=== PATIENT | female | born 1980 | race Caucasian/White ===

== ENCOUNTER 2016-09-13 16:52 | Emergency (ER) | payer BC ==
[2016-09-13 17:06] VITALS: BP 120/68; PULSE 83; TEMP 97.4; BMI 31.0
[2016-09-13 18:19] LABS: PH,URINE 5.5 (4.5-8); URINE APPEARANCE Clear; URINE BILIRUBIN Negative (NEGATIVE); URINE GLUCOSE (UA) Negative (NEGATIVE); URINE KETONE 1+ (NEGATIVE); URINE LEUK ESTERASE Negative (NEGATIVE); URINE NITRITE Negative (NEGATIVE); URINE PROTEIN Negative (NEGATIVE); URINE UROBILINOGEN 0.2 E.U/dl (0.2-1.0)
[2016-09-13 18:20] LABS: BASOPHIL 0.5 % (0-2.0); EOSINOPHIL 1.8 % (0-4.5); MCH 21.1 pg (25.7-33.7); MCHC 30.9 g/dl (32.0-36.0); MEAN CELL VOLUME 68.4 fl (80-96); MEAN PLT VOLUME 9.4 fl (7.5-11.1); NEUTROPHILS 62.7 % (42.8-82.8); PLATELET COUNT 247 K/MM3 (134-434); RDW 15.9 % (11.6-15.6)
[2016-09-13 18:25] LABS: URINE BLOOD 2+ (NEGATIVE); URINE COLOR YELLOW
[2016-09-13 18:28] LABS: ALK PHOS 65 U/L (32-92); ANION GAP 9 (8-16); BILIRUBIN,TOTAL 0.6 mg/dl (0.2-1.0); CALCIUM 8.7 mg/dl (8.4-10.2); CO2 25 mmol/L (22-28); CREATININE 0.5 mg/dl (0.6-1.3); GLUCOSE,RANDOM 98 mg/dl (74-106); SGOT/AST 21 U/L (10-42); SGPT/ALT 12 U/L (10-40); TOT PROT 6.8 g/dl (6.4-8.3)
[2016-09-13 18:29] LABS: URINE BACTERIA FEW /hpf (NEGATIVE)
--- NOTE | 2016-09-13 19:10 | PDOC ---
*Physical Exam - Vital Signs Last Vital Signs Temp Pulse Resp BP Pulse Ox 97.4 F L 83 18 120/68 100 09/13/16 16:52 09/13/16 16:52 09/13/16 16:52 09/13/16 16:52 09/13/16 16:52 ED Treatment Course - LABORATORY CBC & Chemistry Diagram: 09/13/16 17:47 09/13/16 17:47 - ADDITIONAL ORDERS Additional order review: Laboratory Results 09/13/16 09/13/16 18:06 17:47 Sodium 139 Potassium 4.0 Chloride 105 Carbon Dioxide 25 Anion Gap 9 BUN 9 Creatinine 0.5 L Creat Clearance w eGFR > 60 Random Glucose 98 Calcium 8.7 Total Bilirubin 0.6 AST 21 ALT 12 Alkaline Phosphatase 65 Total Protein 6.8 Albumin 4.0 Urine Color Yellow Urine Appearance Clear Urine pH 5.5 Ur Specific Rocky 1.020 Urine Protein Negative Urine Glucose (UA) Negative Urine Ketones 1+ H Urine Blood 2+ H Urine Nitrite Negative Urine Bilirubin Negative Urine Urobilinogen 0.2 e.u/dl Ur Leukocyte Esterase Negative Urine RBC 10-20 Urine WBC 4-8 Ur Epithelial Cells Few Urine Bacteria Few Urine HCG, Qual Negative 09/13/16 17:47 RBC 4.69 MCV 68.4 L MCHC 30.9 L RDW 15.9 H MPV 9.4 Neutrophils % 62.7 Lymphocytes % 27.0 Monocytes % 8.0 Eosinophils % 1.8 Basophils % 0.5 Progress Note - Progress Note Progress Note: Care of this patient was transferred to md from Dr. Cook at 1900 hrs. This is a 35-year-old female who comes in with some neck discomfort left lateral neck as well as mild discomfort. Patient denies any trauma, patient denies any other associated symptoms. 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 Patient has a CT of her neck pending to rule out aortic dissection and rule out tumors. 21:00 CT scan shows no evidence of carotid or vertebral dissection. There are several thyroid nodules. Patient given copy of her CT scan and will follow-up with her primary care doctor. *DC/Admit/Observation/Transfer Diagnosis at time of Disposition: Neck pain, Thyroid nodule - Discharge Dispostion Disposition: HOME Condition at time of disposition: Stable Admit: No - Patient Instructions Additional Instructions: Your chest CT scan shows several small nodules on your thyroid bilaterally. It is important that you take a copy of his CT scan report with you to your primary care doctor and have them followed up with ultrasound and additional testing. You can take Tylenol or ibuprofen for the pain. Return to the emergency department immediately with ANY new, persistent or worsening symptoms. Continue any medications as previously prescribed by your physician. You should follow up with your primary doctor as soon as possible regarding today's emergency department visit. . Please make sure your doctor reviews the results of your emergency evaluation. Thank you for coming to the Emergency Department today for your care. It was a pleasure to see you today. Please note that your evaluation is INCOMPLETE until you follow-up with your doctor.
[2016-09-13 20:26] LABS: ANISOCYTOSIS 1+; HYPOCHROMIA 2+; MICROCYTOSIS 2+
== END 2016-09-13 21:09 | disposition home or self-care (01) ==
LOC: FER 16:52
DX: M54.2 Cervicalgia (principal); E04.2 Nontoxic multinodular goiter
CPT/HCPCS: 36415; 70498-TC; 80053; 81003; 81015; 84703; 85025; 99281-25

== ENCOUNTER 2020-02-23 04:51 | Day surgery (SDC) | payer BC ==
[2020-02-22 10:38] VITALS: BMI 25.8
--- OUTSIDE RECORDS SUMMARY | 2020-02-23 04:54 | XMS ---
:1980 Author Organization [facility] Support Name Relationship Address Phone [facility] Unavailable [facility] [place] [address] [facility] [place] [address] [employer] [address] [place] [address] Re-disclosure Warning The records that you are about to access may contain information from federally- assisted alcohol or drug abuse programs. If such information is present, then the following federally mandated warning applies: This information has been disclosed to you from records protected by federal confidentiality rules (42 CFR part 2). The federal rules prohibit you from making any further disclosure of this information unless further disclosure is expressly permitted by the written consent of the person to whom it pertains or as otherwise permitted by 42 CFR part 2. A general authorization for the release of medical or other information is NOT sufficient for this purpose. The Federal rules restrict any use of the information to criminally investigate or prosecute any alcohol or drug abuse patient.The records that you are about to access may contain highly sensitive health information, the redisclosure of which is protected by Article 27-F of the [facility] Public Health law. If you continue you may haveaccess to information: Regarding HIV / AIDS; Provided by facilities licensed or operated by the [facility] Office of Mental Health; or Provided by the [facility] Office for People With Developmental Disabilities. If such information is present, then the following [facility] mandated warning applies: This information has been disclosed to you from confidential records which are protected by state law. State law prohibits you from making any further disclosure of this information without the specific written consent of the person to whom it pertains, or as otherwise permitted by law. Any unauthorized further disclosure in violation of state law may result in a fine or shelter sentence or both. A general authorization for the release of medical or other information is NOT sufficient authorization for further disclosure. Insurance Providers Payer name Policy type Policy ID Covered Covered libertarian's Policy P kye / Coverage libertarian ID relationship to Chang Inf ormation type chang PPO [id number] SP [id number] [place] [id number] [facility] PPO Results ID Date Data Source [id number] 02/18/2020 11:55:00 AM EDT [facility] Name Value Range Interpretation Description Data Sup porting Code Source(s) Document(s ) SARS [facility] coronavirus 2 RNA This lab was ordered by [facility] and reported by [facility]. Procedure
--- NOTE | 2020-02-23 07:54 | HP ---
History & Physical Update - History History: No Change - Physical Physical: No Change - Assessment Assessment: No Change - Plan Plan: No Change (H&P REVIWED , NO CHANGES , FOR HYSTEROSCOPY , D&C , POLYPEC TERRELL)
[2020-02-23] MEDS ORDERED: PROPOFOL 20 ML ONE (08:12)
[2020-02-23] MEDS ORDERED: MIDAZOLAM HCL 2 MG/2 ML SINGLE DOSE VIAL ONE (08:13)
[2020-02-23] MEDS ORDERED: DESFLURANE GAS 240 ML BOTTLE IH ONE (08:13)
[2020-02-23] MEDS ORDERED: DEXAMETHASONE SOD PHOSPHATE 4 MG/1 ML VIAL ONE (09:23)
[2020-02-23] MEDS ORDERED: ceFAZolin SODIUM 1 GM VIAL ONE (09:23)
[2020-02-23] MEDS ORDERED: KETOROLAC TROMETHAMINE 30 MG/1 ML VIAL ONE (09:23)
[2020-02-23] MEDS ORDERED: oxyCODONE HCL 5 MG TABLET PO PRN ×2 (09:44→11:40)
[2020-02-23] MEDS ORDERED: ONDANSETRON 4 MG/2 ML VIAL IVPUSH PRN ×2 (09:44→11:40)
[2020-02-23] MEDS ORDERED: LACTATED RINGERS SOLUTION 1,000 ML IV SCH (09:45)
[2020-02-23 11:23] VITALS: TEMP 97.1
[2020-02-23] MEDS ORDERED: IBUPROFEN 600 MG TABLET (FP) PO PRN (11:40)
[2020-02-23] MEDS ORDERED: IBUPROFEN 800 MG/8 ML IJ IVPB PRN (11:40)
[2020-02-23] MEDS ORDERED: ELECTROLYTE-148 SOLN 1,000 ML IV SCH (11:45)
--- NOTE | 2020-02-23 11:46 | OP ---
Operative Note - Note: Operative Date: 02/23/20 Pre-Operative Diagnosis: menorrhagia, anemia , EM polyp, Operation: hysteroscopy, EM polypectomy, , resection submucos myoma Findings: 2 cm EM poltp with small submucos myoma Post-Operative Diagnosis: Same as Pre-op Surgeon: Jorge Barillas Anesthesia: General Specimens Removed: EM polyp, EMC, fibroid uterus Estimated Blood Loss (mls): 50 Instrument used (Debridements only): Symphion Drains & Tubes with Location: none Blood Volume Replaced (mls): 0 Operative Report Dictated: Yes
[2020-02-23 12:27] VITALS: BP 123/68; PULSE 89
--- NOTE | 2020-02-24 16:50 | PATH ---
Surgical Pathology Report Patient Name: CHLOE GALDAMEZ Med. Rec. #: [id number] /Age/Gender: 1980 (Age: 39) / F Account: [id number] Location: [facility] SURGICAL Taken: 02/23/2020 Received: 02/23/2020 Reported: 02/24/2020 Physicians: Jorge Barillas M.D. Specimen(s) Received A: ENDOMETRIAL CURETTINGS B: FIBROIDS AND POLYP Clinical History Polyp of corpus uteri Final Diagnosis A. ENDOMETRIAL CURETTINGS, DILATATION AND CURETTAGE: POLYPOID FRAGMENTS OF SECRETORY ENDOMETRIUM WITH GLANDULAR AND STROMAL BREAKDOWN, BENIGN CERVICAL TISSUE, AND SCANT FIBROMUSCULAR TISSUE. B. FIBROID AND POLYP, HYSTEROSCOPIC FIBROUS RESECTION: FRAGMENTS OF ENDOMETRIAL POLYP AND SECRETORY ENDOMETRIUM WITH PATCHY GLANDULAR AND STROMAL BREAKDOWN. SCANT FIBROMUSCULAR TISSUE SUGGESTIVE OF SUBMUCOSAL LEIOMYOMA. Electronically Signed Sheridan Rueda M.D. Gross Description A. Received in formalin labeled "endometrial curettings," is a 1.6 x 1.3 x 0.2 cm aggregate of baeza pink soft tissue fragments. The formalin is filtered and the specimen is entirely submitted in one cassette. B. Received in formalin labeled "fibroid and polyp," is a 2.3 x 2.0 x 0.3 cm aggregate of baeza soft tissue fragments. The formalin is filtered and the specimen is entirely submitted in one cassette. /02/23/2020 saudi/02/23/2020
--- NOTE | 2020-02-25 10:01 | OP ---
DATE OF OPERATION: 02/23/2020 PREOPERATIVE DIAGNOSIS: Menometrorrhagia, endometrial polyp, rule out submucous myoma. POSTOPERATIVE DIAGNOSIS: Menometrorrhagia, endometrial polyp and submucous myoma. SURGEON: Jorge Barillas MD ANESTHESIA: General. ESTIMATED BLOOD LOSS: 50 mL. PROCEDURE: Hysteroscopy, resection of submucous myoma and endometrial polyp, and dilation and curettage. OPERATIVE REPORT: Patient was taken to the operating room. Under adequate general anesthesia in dorsal lithotomy position examination under anesthesia revealed the external genitalia to be normal. Vagina was normal. Cervix was clean. No gross lesion. Uterus normal size. Adnexa: No masses were palpable. Then with a weighted speculum in the vagina, anterior lip of the cervix was grasped with single-tooth tenaculum. Uterine cavity was sounded to 9 cm. Then cervix was slightly dilated with Hegar dilator and then Symphion resectoscope was introduced into the uterine cavity. Endocervical canal appeared to be normal. There was a large polypoid-like lesion in the right lateral wall of the uterus at midportion and then there was also a submucous myoma in the lower uterine segment area. Both cornual regions were identified. Endometrium appeared to be irregular. Then with a Symphion resectoscope, the polyp and the submucous myoma were resected and suctioned in its entirety. Then the D&C was done. Patient tolerated procedure well, left the OR in good condition. Molly [id number]
== END 2020-02-23 12:20 | disposition home or self-care (01) ==
LOC: JASU-SURG 04:51
PROVIDERS: ATTEND Obstetrics & Gynecology
PROC: 0UDB7ZX Extraction of Endometrium, Via Natural or Artificial Opening, Diagnostic (ICD-10-PCS; 2020-02-23)
PROC: 0UJD8ZZ Inspection of Uterus and Cervix, Via Natural or Artificial Opening Endoscopic (ICD-10-PCS; 2020-02-23)
PROC: 0UB98ZZ Excision of Uterus, Via Natural or Artificial Opening Endoscopic (ICD-10-PCS; principal; 2020-02-23 09:00)
PROC: 0UB97ZX Excision of Uterus, Via Natural or Artificial Opening, Diagnostic (ICD-10-PCS; 2020-02-23 09:00)
DX: N92.1 Excessive and frequent menstruation with irregular cycle (principal); N84.0 Polyp of corpus uteri; D25.0 Submucous leiomyoma of uterus
CPT/HCPCS: 84703; 88305-TC; 94760

== ENCOUNTER 2020-11-29 05:27 | Day surgery (SDC) | payer BC ==
[2020-11-25 15:20] VITALS: BMI 22.3
[2020-11-29] MEDS ORDERED: PROPOFOL 20 ML ONE ×2 (10:16)
[2020-11-29] MEDS ORDERED: MIDAZOLAM HCL 2 MG/2 ML SINGLE DOSE VIAL ONE (10:17)
[2020-11-29] MEDS ORDERED: ceFAZolin SODIUM 1 GM VIAL ONE (10:26)
[2020-11-29] MEDS ORDERED: ceFAZolin SODIUM 1 GM VIAL IVPB ONE (10:28)
[2020-11-29] MEDS ORDERED: IBUPROFEN 800 MG/8 ML IJ IVPB PRN (11:04)
[2020-11-29] MEDS ORDERED: ONDANSETRON 4 MG/2 ML VIAL IVPUSH PRN (11:04)
[2020-11-29] MEDS ORDERED: oxyCODONE HCL 5 MG TABLET PO PRN ×2 (11:04→11:08)
[2020-11-29] MEDS ORDERED: IBUPROFEN 600 MG TABLET (FP) PO PRN (11:04)
[2020-11-29] MEDS ORDERED: PROMETHAZINE HCL 25 MG/1 ML VIAL IVPUSH PRN (11:08)
[2020-11-29] MEDS ORDERED: ELECTROLYTE-148 SOLN 1,000 ML IV SCH (11:15)
[2020-11-29] MEDS ORDERED: oxyCODONE HCL 5 MG TABLET ONE (12:10)
[2020-11-29 14:21] VITALS: BP 116/73; PULSE 78; TEMP 97.5
== END 2020-11-29 14:20 | disposition home or self-care (01) ==
LOC: JASU-SURG 05:27
PROVIDERS: ATTEND Obstetrics & Gynecology
PROC: 0U5B8ZZ Destruction of Endometrium, Via Natural or Artificial Opening Endoscopic (ICD-10-PCS; principal; 2020-11-29 09:30)
DX: N92.1 Excessive and frequent menstruation with irregular cycle (principal)
CPT/HCPCS: 81025; 84703; 94760

== ENCOUNTER 2021-03-23 14:53 | Observation (INO) | payer BC ==
[2021-03-23 15:08] VITALS: BP 110/63; PULSE 81; TEMP 98.3; BMI 26.6
[2021-03-23] MEDS ORDERED: SODIUM CHLORIDE 1,000 ML IV SCH (15:30)
[2021-03-23 16:31] LABS: BASO % 0.5 % (0-2.0); EOS % 0.8 % (0-4.5); HEMATOCRIT 39.9 % (32.4-45.2); HEMOGLOBIN 13.4 GM/dL (10.7-15.3); LYMPH % 32.8 % (8-40); MCH 28.9 pg (25.7-33.7); MCHC 33.6 g/dl (32.0-36.0); MEAN PLT VOLUME 8.8 fl (7.5-11.1); MONO % 7.1 % (3.8-10.2); NEUT % 58.8 % (42.8-82.8); PLATELET COUNT 183 10^3/uL (134-434); RBC 4.64 M/mm3 (3.60-5.2); RDW 13.5 % (11.6-15.6); WHITE BLOOD COUNT 5.3 K/mm3 (4.0-10.0)
[2021-03-23 16:39] LABS: INR 0.96 (0.83-1.09); PROTHROMBIN TIME (PATIENT) 10.7 SEC (9.7-13.0)
[2021-03-23 16:42] LABS: ACTIVATED PTT 28.1 SECONDS (25.2-36.5)
[2021-03-23 16:50] LABS: CHLORIDE 108 mmol/L (98-107); SODIUM 139 mmol/L (136-145)
[2021-03-23 16:52] LABS: CALCIUM 8.7 mg/dL (8.5-10.1)
[2021-03-23 16:53] LABS: ANION GAP 3 MMOL/L (8-16); CO2 29 mmol/L (21-32); GLUCOSE,RANDOM 73 mg/dL (74-106)
[2021-03-23 16:56] LABS: CHOLESTEROL 170 mg/dL (50-200); CREATININE 0.6 mg/dL (0.55-1.3); SGOT/AST 21 U/L (15-37); SGPT/ALT 21 U/L (13-61); TRIGLYCERIDES 56 mg/dL (0-150)
[2021-03-23 16:57] LABS: BILIRUBIN,TOTAL 0.9 mg/dL (0.2-1); LDL CHOLESTEROL (ONLY SJRH) 81 mg/dL (5-100); TOT PROT 7.1 g/dl (6.4-8.2)
[2021-03-23 16:58] LABS: ALK PHOS 60 U/L (45-117); HDL CHOLESTEROL 70 mg/dL (40-60)
[2021-03-23 18:20] LABS: EPI CELLS 4 /uL (0-25.1); HYALINE CASTS 5 /uL (0-3.1); PH,URINE 5.5 (5.0-8.0); URINE APPEARANCE CLOUDY; URINE BACTERIA >9,000 /uL (0-1359); URINE BILIRUBIN NEGATIVE (NEGATIVE); URINE COLOR YELLOW; URINE GLUCOSE (UA) NEGATIVE (NEGATIVE); URINE KETONE NEGATIVE (NEGATIVE); URINE LEUK ESTERASE 3+ (NEGATIVE); URINE NITRITE NEGATIVE (NEGATIVE); URINE PROTEIN NEGATIVE (NEGATIVE); URINE RBC 39 /uL (0-23.9); URINE UROBILINOGEN 0.2 mg/dL (0.2-1.0); URINE WBC 1441 /uL (0-25.8)
[2021-03-23] MEDS ORDERED: ATORVASTATIN CA 20 MG TABLET (FP) PO SCH (22:00)
[2021-03-23] MEDS ORDERED: HEPARIN NA (PORCINE) 5,000 UNITS/ML 1ML VIAL SQ SCH (22:00)
[2021-03-23] MEDS ORDERED: HEPARIN NA (PORCINE) 5,000 UNITS/ML 1ML VIAL ONE (23:14)
[2021-03-23] MEDS ORDERED: ATORVASTATIN CA 20 MG TABLET (FP) ONE (23:14)
[2021-03-24] MEDS ORDERED: ASPIRIN COATED 81 MG TABLET.EC PO SCH (10:00)
== END 2021-03-23 23:45 | disposition left against medical advice (07) ==
LOC: JER 14:53 → JERBED 15:31
PROVIDERS: ADMIT Family Medicine; ATTEND Family Medicine
PROC: 3E0337Z Introduction of Electrolytic and Water Balance Substance into Peripheral Vein, Percutaneous Approach (ICD-10-PCS; principal; 2021-03-23)
DX: N20.0 Calculus of kidney (principal); D50.9 Iron deficiency anemia, unspecified
CPT/HCPCS: 36415; 70450-TC; 70551-TC; 80053; 80061; 81003; 82550; 82962; 83036; 84484; 85025; 85610; 85730; 86850; 86900; 86901; 93005; 93010; 99285-25; C9803; G0378; U0003; U0005

== ENCOUNTER 2022-10-13 13:04 | Emergency (ER) | payer BC ==
[2022-10-13] MEDS ORDERED: SODIUM CHLORIDE 1,000 ML IV SCH (13:30)
[2022-10-13 14:26] LABS: BASO % 0.4 % (0-2.0); EOS % 0.2 % (0-4.5); HEMATOCRIT 38.7 % (32.4-45.2); HEMOGLOBIN 13.6 GM/dL (10.7-15.3); LYMPH % 16.5 % (8-40); MEAN CELL VOLUME 82.8 fl (80-96); MEAN PLT VOLUME 8.9 fl (7.5-11.1); MONO % 8.6 % (3.8-10.2); NEUT % 74.3 % (42.8-82.8); PLATELET COUNT 153 10^3/uL (134-434); RBC 4.67 M/mm3 (3.60-5.2); RDW 12.7 % (11.6-15.6); WHITE BLOOD COUNT 5.5 K/mm3 (4.0-10.0)
[2022-10-13 14:29] VITALS: BMI 24.3
[2022-10-13 14:29] LABS: INR 1.13 (0.83-1.09); PROTHROMBIN TIME (PATIENT) 13.1 SEC (9.7-13.0)
[2022-10-13 14:32] LABS: ACTIVATED PTT 28.3 SECONDS (25.2-36.5)
[2022-10-13 14:36] LABS: PH,URINE 7.5 (5.0-8.0); URINE APPEARANCE CLEAR; URINE BILIRUBIN NEGATIVE (NEGATIVE); URINE COLOR YELLOW; URINE GLUCOSE (UA) NEGATIVE (NEGATIVE); URINE KETONE TRACE (NEGATIVE); URINE LEUK ESTERASE NEGATIVE (NEGATIVE); URINE NITRITE NEGATIVE (NEGATIVE); URINE PROTEIN NEGATIVE (NEGATIVE)
[2022-10-13 14:56] LABS: POTASSIUM 3.4 mmol/L (3.5-5.1)
[2022-10-13 14:59] LABS: ALBUMIN 4.2 g/dl (3.4-5.0); BLOOD UREA NITROGEN 8.2 mg/dL (7-18)
[2022-10-13 15:02] LABS: CREATININE 0.7 mg/dL (0.55-1.3)
[2022-10-13 15:03] LABS: BILIRUBIN,TOTAL 0.9 mg/dL (0.2-1); TOT PROT 7.4 g/dl (6.4-8.2)
[2022-10-13] MEDS ORDERED: AMOX TR/POT CLAV 875MG/125MG TABLETS (FP) PO ONE (15:13)
[2022-10-13 15:43] VITALS: BP 117/81; PULSE 100; RESP 17; TEMP 97.7
== END 2022-10-13 15:53 | disposition home or self-care (01) ==
LOC: JER 13:04
DX: R55 Syncope and collapse (principal); U07.1 COVID-19; J01.90 Acute sinusitis, unspecified; R07.0 Pain in throat; S06.0X9A Concussion with loss of consciousness of unspecified duration, initial encounter; R53.1 Weakness; X58.XXXA Exposure to other specified factors, initial encounter; Z20.822 Contact with and (suspected) exposure to COVID-19; Y93.73 Activity, racquet and hand sports
CPT/HCPCS: 0241U-QW; 36415; 70450-TC; 71045-TC-FY; 80053; 80061; 81003; 82962; 83036; 84484; 85025; 85610; 85730; 86850; 86900; 86901; 87651; 93005; 93010; 99285-25

== ENCOUNTER 2022-12-31 21:29 | Emergency (ER) | payer BC ==
[2022-12-31 21:41] VITALS: BP 106/75; PULSE 82; RESP 16; TEMP 98.2; BMI 22.3
[2022-12-31] MEDS ORDERED: CLINDAMYCIN HCL 150 MG CAPSULE (FP) PO ONE (22:31)
[2022-12-31] MEDS ORDERED: CLINDAMYCIN HCL 150 MG CAPSULE (FP) ONE (22:33)
== END 2022-12-31 22:46 | disposition home or self-care (01) ==
LOC: FER 21:29
DX: M79.675 Pain in left toe(s) (principal)
CPT/HCPCS: 99283-25

== ENCOUNTER 2023-03-08 20:33 | Emergency (ER) | payer BC ==
[2023-03-08 20:48] VITALS: BP 102/60; PULSE 75; RESP 17; TEMP 97.5; BMI 20.5
[2023-03-08] MEDS ORDERED: KETOROLAC TROMETHAMINE 60 MG/2 ML VIAL IM ONE (20:48)
[2023-03-08] MEDS ORDERED: CYCLOBENZAPRINE HCL 10 MG TABLET (FP) PO ONE (20:48)
[2023-03-08] MEDS ORDERED: KETOROLAC TROMETHAMINE 60 MG/2 ML VIAL ONE (20:51)
[2023-03-08] MEDS ORDERED: CYCLOBENZAPRINE HCL 5 MG TABLET ONE (20:51)
== END 2023-03-08 21:28 | disposition home or self-care (01) ==
LOC: FER 20:33
PROC: 3E0233Z Introduction of Anti-inflammatory into Muscle, Percutaneous Approach (ICD-10-PCS; principal; 2023-03-08)
DX: M54.2 Cervicalgia (principal); M54.12 Radiculopathy, cervical region
CPT/HCPCS: 99284-25

== ENCOUNTER 2023-12-11 10:24 | Emergency (ER) | payer BC ==
[2023-12-11 10:37] VITALS: BP 101/70; PULSE 67; RESP 15; TEMP 98.3; BMI 20.5
[2023-12-11] MEDS ORDERED: ACETAMINOPHEN 500 MG TABLET (FP) ONE (10:38)
[2023-12-11] MEDS: ACETAMINOPHEN 325 MG TABLET (FP) PO ONE (10:40)
== END 2023-12-11 10:50 | disposition home or self-care (01) ==
LOC: FER 10:24
DX: S00.03XA Contusion of scalp, initial encounter (principal); W01.198A Fall on same level from slipping, tripping and stumbling with subsequent striking against other object, initial encounter
CPT/HCPCS: 99283-25

== ENCOUNTER 2024-03-09 09:08 | Emergency (ER) | payer BC ==
[2024-03-09] MEDS ORDERED: IBUPROFEN 600 MG TABLET (FP) PO ONE (09:32)
[2024-03-09] MEDS: IBUPROFEN 600 MG TABLET (FP) PO ONE (09:34)
[2024-03-09 09:45] VITALS: BP 123/77; PULSE 88; RESP 17; TEMP 98; BMI 23.8
[2024-03-09 11:21] LABS: MCH 28.5 pg (25.7-33.7); MCHC 31.8 g/dl (32.0-36.0); MEAN CELL VOLUME 89.6 fl (80-96); MEAN PLT VOLUME 8.4 fl (7.5-11.1); PLATELET COUNT 207.5 10^3/uL (134-434); RBC 4.91 10^6/uL (3.60-5.2); RDW 14.8 % (11.6-15.6)
[2024-03-09] MEDS ORDERED: ACETAMINOPHEN 500 MG TABLET (FP) ONE (11:32)
[2024-03-09] MEDS: ACETAMINOPHEN 500 MG TABLET (FP) PO ONE (11:33)
[2024-03-09 11:38] LABS: ALBUMIN 4.6 g/dl (3.4-5.0); ALK PHOS 56 U/L (45-117); ANION GAP 5 mmol/L (4-13); CALCIUM 9.2 mg/dl (8.5-10.1); CHLORIDE 103 mmol/L (98-107); CO2 30 mmol/L (21-32); CREATININE 0.5 mg/dl (0.6-1.3); GLUCOSE,RANDOM 83 mg/dl (74-106); POTASSIUM 4.4 mmol/L (3.5-5.1); SGOT/AST 26 U/L (15-37); SGPT/ALT 21 U/L (7-52); SODIUM 138 mmol/L (136-145); TOT PROT 6.8 g/dl (6.4-8.2)
[2024-03-09 12:08] LABS: PLATELET ESTIMATE ADEQUATE
[2024-03-09 12:23] LABS: ERYTHROCYTE SEDIMENTATION RATE 2 mm/hr (0-20)
== END 2024-03-09 12:34 | disposition home or self-care (01) ==
LOC: FER 09:08
DX: M79.645 Pain in left finger(s) (principal)
CPT/HCPCS: 36415; 73140-TC-LT-FY; 80053; 85025; 85651; 86140; 99284-25

== ENCOUNTER 2024-03-13 12:45 | Emergency (ER) | payer BC ==
[2024-03-13 12:58] VITALS: BP 123/75; PULSE 68; RESP 18; TEMP 98.6; BMI 23.8
[2024-03-13 14:37] LABS: BASO % 0.7 % (0-2.0); HEMATOCRIT 40.9 % (32.4-45.2); LYMPH % 28.5 % (8-40); MCH 28.1 pg (25.7-33.7); MCHC 31.7 g/dl (32.0-36.0); MEAN CELL VOLUME 88.5 fl (80-96); MEAN PLT VOLUME 8.4 fl (7.5-11.1); MONO % 7.8 % (3.8-10.2); PLATELET COUNT 215 10^3/uL (134-434); RBC 4.62 M/mm3 (3.60-5.2); RDW 13.7 % (11.6-15.6); WHITE BLOOD COUNT 6.5 K/mm3 (4.0-10.0)
[2024-03-13 14:59] LABS: CALCIUM 9.1 mg/dL (8.5-10.1)
[2024-03-13 15:03] LABS: CREATININE 0.5 mg/dL (0.55-1.3)
[2024-03-13 15:04] LABS: BILIRUBIN,TOTAL 1.1 mg/dL (0.2-1); TOT PROT 6.8 g/dl (6.4-8.2)
[2024-03-13 15:26] LABS: ACTIVATED PTT 30.3 SECONDS (25.2-36.5); INR 0.96 (0.83-1.09); PROTHROMBIN TIME (PATIENT) 10.9 SEC (9.7-13.0)
[2024-03-13] MEDS ORDERED: ACETAMINOPHEN INJECTION 100 ML ONE (16:39)
[2024-03-13] MEDS: ACETAMINOPHEN 1000 MG/100 ML BAG IVPB ONE (16:43)
[2024-03-13] MEDS: SODIUM CHLORIDE 1,000 ML IV STA (16:44)
== END 2024-03-13 16:59 | disposition home or self-care (01) ==
LOC: JER 12:45
DX: R07.2 Precordial pain (principal)
CPT/HCPCS: 36415; 71046-TC-FY; 71275-TC; 80053; 83690; 84484; 84702; 85025; 85610; 85730; 86850; 86900; 86901; 93005; 93010; 99285-25; Q9967